=== PATIENT | female | born 1960 | race Caucasian/White ===

== ENCOUNTER 2018-10-07 13:16 | Emergency (ER) | payer MEDICAID, SELFPAY ==
[2018-10-07 13:18] VITALS: BP 92/61; PULSE 97; RESP 20; TEMP 36.2; O2SAT 96; BMI 43.6
--- NOTE | 2018-10-07 14:07 | US_ITS ---
STUDY: ABDOMINAL ULTRASOUND - RIGHT UPPER QUADRANT REASON FOR VISIT: Female, 58 years old. ABD DISTENTION, HX OF ETOH, EVALUATE LIVER AND FOR ASCITES TECHNIQUE: Ultrasound evaluation of the right upper quadrant was performed with real-time and static pope-scale imaging. TECHNICAL QUALITY: Adequate. COMPARISON: None. FINDINGS: Liver: The liver measures 19.8 cm. There is increased echogenicity consistent with fatty infiltration. The bile ducts are within normal limits. There is hepatic color flow. The direction of portal flow is hepatopetal. There is no demonstrated mass lesion. Gallbladder: Normal distended gallbladder. The gallbladder wall measures 3.2 mm. There is a negative sonographic Herring's sign. There is small amount of ascites. There are no gallstones. Common Bile Duct (C.B.D.): The common bile duct measures 3.7 mm. Pancreas: Normal size of the head, body and tail of the pancreas. There is normal echogenicity of the pancreas. There is no demonstrated pancreatic mass or cyst. Right Kidney: Normal size of the right kidney. The right kidney measures 11.4 x 6.2 x 5.2 cm. Normal renal cortex. The right cortex measures 1.8 cm. There is no demonstrated renal mass or cyst. There is no right hydronephrosis. US/Abdomen Limited IMPRESSION: Fatty infiltration of the liver. There is small amount of ascites. Electronically Signed: Karyn Cerda, at 15:48 EDT Tel , Service support ,
--- NOTE | 2018-10-07 14:13 | ED.DCSUM_ITS ---
- ER Visit Summary Date of Service: 10/07/18 Chief Complaint: Abdominal distention History of Present Illness: The patient is a 58 F increasing abdominal distention over the past week. No nausea or vomiting. Chronic diarrhea. Alcohol history. Sees physician in [place] with visiting physicians saw Thierry Trevizo CNP at that time. Was told she could have cirrhosis reports she was referred to the emergency department for drainage of her abdomen. She has not been diagnosed with cirrhosis have not seen GI. Her last drink was 2 days ago with no vomiting or tremors. She apparently went to [facility], there is no place for her, however with abdominal complaints was told to go the ED. No urinary symptoms. No abdominal surgeries. Physical Examination: General: Alert and oriented ?3, no acute distress HEENT: Normocephalic, atraumatic. Moist mucosa membranes, mild scleral icterus Neck: supple, nontender. Cardiovascular: Regular rate and rhythm, no murmurs Respiratory: Normal breath sounds, symmetric, no distress Abdomen: Soft, nontender, distention, not rigid or tense. Nontender. Extremities: Nontender, no edema, pulses intact ?4 Neuro: no focal neurological deficits. Test Results: Hemoglobin 13.1, platelets 102, sodium 137, lipase 212, INR 1.7, total bilirubin 4.2, direct bilirubin 2.93, ALT 30, AST 61. Abdominal ultrasound small amount of ascites, as for any liver, common bile duct 3.7 mm. Emergency Department Course and Treatment: Vitals stable, nontoxic. Evaluation of the patient, with her alcohol history, could be developing early cirrhosis she is slightly jaundiced in the icterus. Labs consistent with transaminitis and clinical findings. She does have thrombocytopenia, also likely from a alcohol history. She had 2 days of reported absent from alcohol with no symptoms. Ultrasound reported noted fatty liver with small amount of ascites with normal common bile. With her labs concern for development of cirrhosis. I spoke with patient's office with MARYBETH Bains, reports a week ago was being referred for her alcohol dependence. There is no noted GI referral or workup for her abdominal distention. She did report that there is cirrhosis noted in her records. Patient denies ever being told this. I discussed with nurse, will consent patient for records to be faxed to their facilities and they have on hand labs and image studies. Discussed that she would need a GI referral. Discussed with patient discussion and plan of care. She understands. All questions answered. Treatment Plan: [] Disposition: Discharge Impression: 1. Transaminitis 2. Alcohol history 3. Thrombocytopenia This note was generated with [employer] software. It may contain incorrect words, spelling, and punctuation that were not noted in review of the chart prior to signing ED Disposition - Plan for ED Patient: Disposition: Home or Assisted Living Diagnosis: Transaminitis, Thrombocytopenia, Alcohol dependence Instructions: Thrombocytopenia, Understanding Cirrhosis, Understanding Alcoholism Additional Instructions: Labs and ultrasound report sent to your physician office. Following up with him for a GI referral. Results are concerning for early cirrhosis if you have not been diagnosed with this.
[2018-10-07 14:28] LABS: Absolute Neutrophil Count 2.3 X10^3/uL (2.0-7.7); Basophil# 0.02 X10^3/uL; Basophil% 0.5 % (0-1); Eosinophil# 0.09 X10^3/uL; Eosinophils% 2.1 % (0-5); Hematocrit 39.4 % (37-47); Hemoglobin 13.1 g/dl (12.0-15.0); Lymphocyte % 21.5 % (19-41); Mean Corp Hgb Conc 33.2 g/gl (32-36); Mean Corpuscular Hgb 32.6 pg (27.0-32.0); Mean Platelet Vol. 11.7 fl (6.2-12.0); Monocyte# 0.89 X10^3/uL; Monocyte% 21.2 % (0-10); Neutrophil # 2.28 X10^3/uL (2.7-7.7); Neutrophil % 54.5 % (47-70); Platelet Count 102 K/mm3 (150-450); RBC Distribution Width SD 59.8 fl (35.1-43.9); Red Blood Count 4.02 M/mm3 (4.2-5.4); White Blood Count 4.2 K/mm3 (4.4-11.0)
[2018-10-07 14:30] LABS: POSITIVE COUNT NO; POSITIVE DIFFERENTIAL NO; POSITIVE MORPHOLOGY NO
--- NOTE | 2018-10-07 14:31 | NURSING ---
NO CONCERN FOR SEPSIS, SEPSIS SCREEN CANCELLED
[2018-10-07 14:51] LABS: International Normalized Ratio 1.7; Prothrombin Time (Protime)PT. 19.7 SECONDS (11.7-14.9)
[2018-10-07 15:02] LABS: AST(SGOT) 61 U/L (15-37); Alanine Aminotransfer ALT/SGPT 30 U/L (13-56); Albumin, Serum 2.4 g/dL (3.2-5.0); Alkaline Phosphatase 181 U/L (45-117); Anion Gap 6 (5-15); BUN 5 mg/dL (7-18); Bilirubin, Direct 2.93 mg/dL (0.00-0.30); Calcium,Total 7.7 mg/dL (8.5-10.1); Chloride 99 mmol/L (98-107); Creatinine, Serum 0.99 mg/dL (0.55-1.02); EST Glomerular Filtration Rate 61 mL/min (>60); Est Glom Filt Rate - Afr Amer 74 mL/min (>60); Globulin 5.9 g/dL (2.2-4.2); Glucose 127 mg/dL (74-106); Lipase 212 U/L (73-393); Protein, Total 8.3 g/dL (6.4-8.2); Sodium Level 137 mmol/L (136-145)
[2018-10-07 16:33] VITALS: BP 127/74; PULSE 94; RESP 18; O2SAT 99
--- NOTE | 2018-10-07 16:34 | NURSING ---
SPOKE WITH BRAYAN AT [facility] , PT DOES NOT MEET CRITERIA FOR ADMISSION TO [facility], EDUCATED PT ON ALCOHOL WITHDRAWAL SYMPTOMS. INSTRUCTED TO CALL BACK [facility] IF SHE DEVELOPS SIGNS AND SYMPTOM. PT VERBALIZED UNDERSTANDING AND PLAN OF CARE. INFORMED HER [employer]ILD [employer]ARE ASS[employer]IATE TE[employer]ER AT [facility].
== END 2018-10-07 16:56 | disposition home or self-care (01) ==
PROVIDERS: Emergency Provider Emergency Medicine
DX: R74.0 Nonspecific elevation of levels of transaminase and lactic acid dehydrogenase [LDH] (principal); D69.6 Thrombocytopenia, unspecified; F10.20 Alcohol dependence, uncomplicated; K70.0 Alcoholic fatty liver; R18.8 Other ascites; E11.9 Type 2 diabetes mellitus without complications; I10 Essential (primary) hypertension; Z72.0 Tobacco use; Z79.899 Other long term (current) drug therapy
CPT/HCPCS: 76705; 80048; 80076; 83690; 85025; 85610; 99283; A4216